=== PATIENT | male | born 1980 | race Caucasian/White ===

== ENCOUNTER 2023-11-28 13:19 | Observation (INO) ==
[2023-11-28 14:24] LABS: Basophils # (auto) 0.03 K/uL (0.00-0.20); Basophils % (auto) 0.3 %; Eosinophils # (auto) 0.03 K/uL (0.00-0.50); Eosinophils % (auto) 0.3 %; Hematocrit (blood only) 49.1 % (42.0-52.0); Hemoglobin 16.8 g/dl (14.0-18.0); Immature Granulocytes # (auto) 0.03 K/uL (0.01-0.20); Immature Granulocytes % (auto) 0.3 %; Lymphocytes # (auto) 1.83 K/uL (1.20-3.40); Lymphocytes % (auto) 17.7 %; Mean Corpuscular Hemoglobin 29.4 pg (25.0-34.0); Mean Corpuscular Hgb Conc 34.2 g/dL (32.0-36.0); Mean Corpuscular Volume 85.8 fL (80.0-100.0); Mean Platelet Volume 10.2 fL (9.4-12.4); Monocytes % (auto) 6.8 %; Neutrophils # (auto) 7.71 K/uL (1.40-6.50); Neutrophils % (auto) 74.6 %; Platelet Count 238 K/uL (130-400); RDW Coefficient of Variation 13.6 % (11.5-14.5); RDW Standard Deviation 43.2 fL (36.4-46.3); Red Blood Count 5.72 M/uL (4.70-6.10); White Blood Count 10.33 K/ul (4.8-10.8)
[2023-11-28 14:42] LABS: Albumin Globulin Ratio 1.5 (0.9-2); Albumin Level 4.7 gm/dl (3.4-5.0); BUN Creatinine Ratio 11.8 (10-20); Creatinine Clr Calc Pharmacy 87.6 ml/min; Est GFR (African American) 93.5 ml/min; Est GFR (Non-African American) 80.6 ml/min; Globulin 3.1 gm/dl (2.5-4.0); Total Protein 7.8 gm/dl (6.0-8.3)
[2023-11-28] MEDS: OPTIRAY 320 100ml IV ONE (15:19)
--- NOTE | 2023-11-28 15:45 | CT Scan Report ---
CT OF THE ABDOMEN AND PELVIS WITH CONTRAST CLINICAL HISTORY: PERIUMBILICAL/RLQ ABD PAIN COMPARISON STUDY: None. TECHNIQUE: Following IV administration of 93 mL of Optiray, axial images of the abdomen and pelvis we re obtained from the lung bases to the proximal femurs. Images were reviewed in the axial, sagittal, and coronal planes. IV contrast was administered without complication. Automated exposure control wa s utilized for the study. A dose lowering technique was utilized adhering to the principles of ALARA . CT DOSE: 1432.08 mGy.cm FINDINGS: Lung bases are unremarkable. No pneumatosis, free air or portal venous gas is present. Ther e is hepatic steatosis. No biliary or pancreatic ductal dilatation is noted. The spleen, adrenal glan ds, kidneys and pancreas are unremarkable. Major vasculature is patent. There is no evidence for a wander wel obstruction. The appendix is dilated, measuring 1.1 cm in caliber. The appendiceal wall is thicke jatin. There is moderate periappendiceal stranding. There is no free air. No fluid collection is presen t. IMPRESSION: Findings consistent with acute appendicitis. Moderate periappendiceal inflammation. No f ree air or abscess. ACT 112: Negative or not required by law. Electronically signed by: Vipin Malloy M.D. 11/28/2023 3:44 PM
--- NOTE | 2023-11-28 16:01 | Emergency Department Note ---
History of Present Illness General Chief complaint: Abdominal Pain Stated complaint: ABDOMINAL PAIN, Time Seen by Provider: 11/28/23 15:49 History of Present Illness Maximum Pain Intensity: 7 This is a 43-year-old male that presents to the emergency department via private vehicle with complaints of "abdominal pain". The patient notes that last evening around 8:30 PM he began with lower abdominal pain just below the umbilicus that is now in the right lower quadrant. This has never happened before. He notes a history of hernia surgery as a child but nothing recent. He could not sleep last night secondary to the pain. No fever. No urinary symptoms. Otherwise he is healthy. He last ate food last evening. Home Medications Medication Instructions Recorded Confirmed Type None (Patient States No Home Meds) ##0 01/28/10 History Allergies Allergy/AdvReac Type Severity Reaction Status Date / Time No Known Allergies Unverified 01/28/10 22:50 Past Med/Surg History Social History Smoking Status: Current every day smoker Tobacco Type: Smokeless Tobacco (Dip or Chew) Preferred Language: Samoan Feels Safe at Home: Yes Review of Systems A total of 10 systems reviewed and were otherwise negative Physical Exam Vital Signs Vital Signs - 24 hr 11/28/23 13:35 11/28/23 15:56 11/28/23 16:30 Temperature 36.8 C Temperature Source Temporal Artery Scan Pulse Rate 94 H 82 Pulse Rate [Apical] Pulse Rate [Right Finger] 96 H Pulse Rate from SpO2 Sensor 85 Pulse Rhythm Regular Pulse Rhythm [Apical] Pulse Rhythm [Right Finger] Pulse Strength Normal Pulse Strength [Right Finger] Respiratory Rate 18 20 14 Respiratory Effort / Characteristics Non-Labored Non-Labored Spontaneous Respiratory Depth Normal Normal Respiratory Pattern Regular Blood Pressure 163/108 H 143/100 H Blood Pressure [Right Arm] 172/119 H Blood Pressure Mean 126 114 Blood Pressure Mean [Right Arm] 136 Blood Pressure Position Sitting Blood Pressure Position [Right Arm] Pulse Oximetry 95 96 97 Oxygen Delivery Method Room Air Room Air Room Air Oxygen Flow Rate Sepsis Recent Fever Within 48 Hours No Sepsis New/Unexplained Change in Mental Status No Sepsis Action Taken by Nursing No Action Required 11/28/23 17:00 11/28/23 17:52 11/28/23 19:15 Temperature 37.4 C 36.3 C L Temperature Source Oral Temporal Artery Scan Pulse Rate 83 Pulse Rate [Apical] 73 Pulse Rate [Right Finger] 85 Pulse Rate from SpO2 Sensor 83 Pulse Rhythm Pulse Rhythm [Apical] Regular Pulse Rhythm [Right Finger] Regular Pulse Strength Pulse Strength [Right Finger] Normal Respiratory Rate 15 16 18 Respiratory Effort / Characteristics Non-Labored Spontaneous Non-Labored Spontaneous Respiratory Depth Normal Normal Respiratory Pattern Regular Blood Pressure 155/84 H Blood Pressure [Right Arm] 154/90 H 192/96 H Blood Pressure Mean 107 Blood Pressure Mean [Right Arm] 111 128 Blood Pressure Position Blood Pressure Position [Right Arm] Semi-fowlers Lying Pulse Oximetry 95 96 97 Oxygen Delivery Method Room Air Room Air Oxymask Oxygen Flow Rate 5 Sepsis Recent Fever Within 48 Hours Sepsis New/Unexplained Change in Mental Status Sepsis Action Taken by Nursing 11/28/23 19:25 Temperature Temperature Source Temporal Artery Scan Pulse Rate Pulse Rate [Apical] 90 Pulse Rate [Right Finger] Pulse Rate from SpO2 Sensor Pulse Rhythm Pulse Rhythm [Apical] Regular Pulse Rhythm [Right Finger] Pulse Strength Pulse Strength [Right Finger] Respiratory Rate 21 Respiratory Effort / Characteristics Non-Labored Spontaneous Respiratory Depth Normal Respiratory Pattern Regular Blood Pressure Blood Pressure [Right Arm] 179/94 H Blood Pressure Mean Blood Pressure Mean [Right Arm] 122 Blood Pressure Position Blood Pressure Position [Right Arm] Lying Pulse Oximetry 89 L Oxygen Delivery Method Oxymask Oxygen Flow Rate 5 Sepsis Recent Fever Within 48 Hours Sepsis New/Unexplained Change in Mental Status Sepsis Action Taken by Nursing VITAL SIGNS - Vital signs and nursing notes were reviewed. Hypertensive, otherwise stable. GENERAL -43-year-old male appearing his stated age who is in no acute distress. Communicates well with provider and answers questions appropriately. SKIN - Without rashes. No meningeal or petechial rash. HEAD - NC/AT. EYES - Sclera anicteric. NOSE - Midline and without cyanosis. MOUTH/OROPHARYNX - Without perioral cyanosis. NECK - Neck with FROM. No nuchal rigidity. LUNGS - Chest wall symmetric without accessory muscle use, intercostals retractions, or central cyanosis. Normal vesicular breath sounds CTA B/L. No wheezes, rales, or rhonchi appreciated. CARDIAC - RRR with S1/S2. No murmur, rubs, or gallops appreciated. ABDOMEN - Abdominal contour normal without pulsations or visible masses. BS normoactive all four quadrants. There is right lower quadrant abdominal tenderness to palpation. No palpable masses, hepatosplenomegaly, or ascites noted. EXTREMITIES - No clubbing or peripheral cyanosis. +5/5 strength noted in UE/LE bilaterally. NEUROLOGIC - Cranial nerves grossly intact. PSYCH -alert, oriented and pleasant on exam. Course Administered Medications Fentanyl Citrate (Fentanyl Citrate Pf 100 Mcg/2 Ml Vial) 50 mcg IV Q5M PRN PRN Reason: PACU Use Only-Pain Stop: 11/29/23 01:54 Last Admin: 11/28/23 19:40 Dose: 50 mcg Documented By: CELESTINE Sodium Chloride (Nss) 1,000 mls @ 100 mls/hr IV .Q10H JJ Stop: 12/28/23 19:29 Last Admin: 11/28/23 20:47 Dose: 100 mls/hr Documented By: HAL Discontinued Medications Bupivacaine HCl/Epinephrine Bitart (Bupivacaine/Epinephrine 0.5% Mpf 1:200,000 30 Ml Vial) Confirm Administered Dose 30 ml .ROUTE .STK-MED ONE Stop: 11/28/23 17:31 Last Admin: 11/28/23 19:00 Dose: 30 ml Documented By: LINDSAY Cefoxitin Sodium (Mefoxin) 2,000 mg in 60 mls @ 100 mls/hr IV NOW STA Stop: 11/28/23 16:31 Last Infusion: 11/28/23 17:35 Dose: Infused Documented By: Admin: 11/28/23 16:11 Dose: 100 mls/hr Documented By: DEVAUGHN Sodium Chloride (Nss) 1,000 mls @ 999 mls/hr IV .Q1H1M JJ Stop: 11/28/23 17:00 Last Infusion: 11/28/23 17:27 Dose: Infused Documented By: Admin: 11/28/23 16:11 Dose: 999 mls/hr Documented By: DEVAUGHN Ioversol (Optiray 320 100ml) 93 ml IV ONCE ONE Stop: 11/28/23 15:16 Last Admin: 11/28/23 15:19 Dose: 93 ml Documented By: BROOKE Morphine Sulfate (Morphine Sulfate 4 Mg/Ml 1 Ml Carp\\Vial) 4 mg IV NOW STA Stop: 11/28/23 15:57 Last Admin: 11/28/23 16:10 Dose: 4 mg Documented By: DEVAUGHN Ondansetron HCl (Ondansetron Inj 2 Mg/Ml 2 Ml Vial) 4 mg IV NOW STA Stop: 11/28/23 15:57 Last Admin: 11/28/23 16:10 Dose: 4 mg Documented By: DEVAUGHN Medical Decision Making Laboratory Data 11/28/23 14:10 11/28/23 14:10 Lab Results 11/28/23 Range/Units 14:10 WBC 10.33 (4.8-10.8) K/ul RBC 5.72 (4.70-6.10) M/uL Hgb 16.8 (14.0-18.0) g/dl Hct 49.1 (42.0-52.0) % MCV 85.8 (80.0-100.0) fL MCH 29.4 (25.0-34.0) pg MCHC 34.2 (32.0-36.0) g/dL RDW Std Deviation 43.2 (36.4-46.3) fL RDW Coeff of Araceli 13.6 (11.5-14.5) % Plt Count 238 (130-400) K/uL MPV 10.2 (9.4-12.4) fL Immature Gran % (Auto) 0.3 % Neut % (Auto) 74.6 % Lymph % (Auto) 17.7 % [place] % (Auto) 6.8 % Eos % (Auto) 0.3 % Baso % (Auto) 0.3 % Neut # (Auto) 7.71 H (1.40-6.50) K/uL Lymph # (Auto) 1.83 (1.20-3.40) K/uL [place] # (Auto) 0.70 H (0.11-0.59) K/uL Eos # (Auto) 0.03 (0.00-0.50) K/uL Baso # (Auto) 0.03 (0.00-0.20) K/uL Immature Gran # (Auto) 0.03 (0.01-0.20) K/uL Sodium 135 L (136-145) mmol/L Potassium 4.0 (3.5-5.1) mmol/L Chloride 101 (98-107) mmol/L Carbon Dioxide 26 (21-32) mmol/L Anion Gap 8 (3-11) BUN 13 (6-23) mg/dl Creatinine 1.10 (0.6-1.4) mg/dl Est Cr Clr Drug Dosing 87.6 ml/min Est GFR ( Amer) 93.5 ml/min Est GFR (Non-Af Amer) 80.6 ml/min BUN/Creatinine Ratio 11.8 (10-20) Glucose 123 H (70-99(Fasting)) mg/dl Calcium 10.0 (8.6-10.3) mg/dl Total Bilirubin 1.0 (0.2-1.0) mg/dl AST 17 (13-39) U/L ALT 38 (7-52) U/L Alkaline Phosphatase 84 (34-104) U/L Total Protein 7.8 (6.0-8.3) gm/dl Albumin 4.7 (3.4-5.0) gm/dl Globulin 3.1 (2.5-4.0) gm/dl Albumin/Globulin Ratio 1.5 (0.9-2) Lipase 27 (11-82) U/L Imaging Data Radiologist's Impression: Abdomen/Pelvis CT 11/28/23 13:57 CT OF THE ABDOMEN AND PELVIS WITH CONTRAST CLINICAL HISTORY: PERIUMBILICAL/RLQ ABD PAIN COMPARISON STUDY: None. TECHNIQUE: Following IV administration of 93 mL of Optiray, axial images of the abdomen and pelvis were obtained from the lung bases to the proximal femurs. Images were reviewed in the axial, sagittal, and coronal planes. IV contrast was administered without complication. Automated exposure control was utilized for the study. A dose lowering technique was utilized adhering to the principles of ALARA. CT DOSE: 1432.08 mGy.cm FINDINGS: Lung bases are unremarkable. No pneumatosis, free air or portal venous gas is present. There is hepatic steatosis. No biliary or pancreatic ductal dilatation is noted. The spleen, adrenal glands, kidneys and pancreas are unremarkable. Major vasculature is patent. There is no evidence for a bowel obstruction. The appendix is dilated, measuring 1.1 cm in caliber. The appendiceal wall is thickened. There is moderate periappendiceal stranding. There is no free air. No fluid collection is present. IMPRESSION: Findings consistent with acute appendicitis. Moderate periappendiceal inflammation. No free air or abscess. ACT 112: Negative or not required by law. Electronically signed by: Vipin Malloy M.D. 11/28/2023 3:44 PM MDM Narrative Patient was seen and evaluated as above in room A03. Review was performed of triage nursing notes and vital signs. After obtaining a thorough history and physical examination the above work up was performed. Patient presents to us today for evaluation of right lower quadrant abdominal pain that began last evening around 8:30 PM. No history of similar. Afebrile. Hypertensive on arrival. He is tender in the right lower abdomen. Options of care were discussed with the patient. Patient does present during a period of elevated volume and acuity in the emergency department. He already had labs and imaging performed of the abdomen/pelvis. Labs reveal no leukocytosis or concerning anemia. No emergent metabolic disturbance. Mild hyperglycemia 123. Urinalysis without sign of infection. CT scan reveals findings consistent with acute appendicitis. Moderate periappendiceal inflammation. No free air or abscess. IV fluids, IV antiemetics, IV analgesics, and IV antibiotics ordered. Case discussed with the on-call general surgeon (Dr. Haq) at 5:06 PM. He will come evaluate the patient. Please refer to further documentation regarding his stay. GCS: 15 In the evaluation and treatment of this patient the following differential diagnoses were entertained: Acute appendicitis, gastroenteritis, diverticulitis, UTI, pyelonephritis, strain, sprain, among others. Impression & Plan Acute appendicitis Discharge Plan Visit Data Chief Complaint: Abdominal Pain Stated Complaint: ABDOMINAL PAIN, ED Provider: Kamran Forde ED Midlevel Provider: Gilson Mo Discharge Problem: Acute appendicitis Condition: Good Discharge Instructions Interventions: ED Discharge Assessment Last Done: 11/28/23 17:45
[2023-11-28] MEDS: ONDANSETRON INJ 2 MG/ML 2 ML VIAL IV STA (16:10)
[2023-11-28] MEDS: MoRPHine SULFATE 4 MG/ML 1 ML CARP\\VIAL IV STA (16:10)
[2023-11-28] MEDS: SODIUM CHLORIDE 0.9% 1,000 ML IV SCH ×2 (16:11→20:47)
[2023-11-28] MEDS: cefOXitin 2,000 MG/60 ML BAG IV STA (16:11)
[2023-11-28 16:36] LABS: Appearance Urine Clear (Clear); Bilirubin Urine Negative (Negative); Blood Urine Negative (Negative); Color Urine Yellow; Glucose Urine UA Negative (Negative); Ketones Urine Negative (Negative); Leukocyte Esterase Urine Negative (Negative); Nitrite Urine Negative (Negative); Protein Urine Negative (Negative); Specific Gravity Urine > 1.045 (1.000-1.030); Urobilinogen Urine Negative (Negative)
[2023-11-28] MEDS ORDERED: ONDANSETRON INJ 2 MG/ML 2 ML VIAL ONE (17:44)
[2023-11-28] MEDS ORDERED: DEXAMETHASONE SOD INJ 4 MG/ML VIAL ONE ×2 (17:44→18:21)
[2023-11-28] MEDS ORDERED: LIDOCAINE 2% 2 ML VIAL/AMP(20MG/ML) INFIL ONE (17:44)
[2023-11-28] MEDS ORDERED: MIDAZOLAM HCL 1 MG/ML 2ML VIAL ONE (17:44)
[2023-11-28] MEDS ORDERED: SUCCINYLCHOLINE CHLORIDE 20 MG/ML 10 ML VIAL IV ONE (17:44)
[2023-11-28] MEDS ORDERED: fentaNYL citrate PF 100 MCG/2 ML VIAL ONE (17:44)
[2023-11-28] MEDS ORDERED: SUGAMMADEX SODIUM 200 MG/2 ML VIAL IV ONE (17:45)
--- NOTE | 2023-11-28 17:47 | History & Physical Report ---
Date of Service November 28, 2023 Assessment & Plan (1) Acute appendicitis: Plan: We discussed his options as well as risks which include bleeding, infection, injury to another organ, DVT, PE, OH, CVA etc. Following a discussion I answered all of his questions. He agrees with the plan. We will proceed with laparoscopic appendectomy this evening. History of Present Illness Primary Care Provider: NO PCP Heladio is a pleasant 43-year-old male who has less than 24-hour history of umbilical pain which has now migrated to the right lower quadrant. He came to the emergency room and workup has revealed an acute appendicitis. Allergies Allergy/AdvReac Type Severity Reaction Status Date / Time No Known Allergies Unverified 01/28/10 22:50 Home Medications Medication Instructions Recorded Confirmed Type None (Patient States No Home Meds) ##0 01/28/10 History Past Med/Surg History Social History Smoking Status: Current every day smoker Tobacco Type: Smokeless Tobacco (Dip or Chew) Preferred Language: Yakut Feels Safe at Home: Yes Review of Systems All systems reviewed & are unremarkable except as noted in HPI & below Physical Exam Constitutional: WD/WN, vitals as above no acute distress and not ill appearing Eyes: PERRL, conjunctivae normal, anicteric sclerae EOM intact bilaterally ENMT: external ear and nose normal, oropharynx normal Ears: no hearing impairment Neck: trachea midline, no thyromegaly Respiratory: normal respiratory effort; no respiratory distress and does not use accessory muscles Cardiovascular: Rate/Rhythm: regular rate and regular rhythm Gastrointestinal (Abdomen): Soft. Positive right lower quadrant tenderness. Positive guarding. Skin: no rashes, warm and dry Psychiatric: Orientation: alert, oriented x 3 and cooperative Results & Data Vital Signs (Past 12 Hours) Vital Signs Temp Pulse Pulse Resp BP BP Pulse Ox 11/28/23 17:00 83 15 155/84 H 95 11/28/23 16:30 82 14 143/100 H 97 11/28/23 15:56 96 H 20 172/119 H 96 11/28/23 13:35 36.8 C 94 H 18 163/108 H 95 O2 Del Method 11/28/23 17:00 Room Air 11/28/23 16:30 Room Air 11/28/23 15:56 Room Air 11/28/23 13:35 Room Air
[2023-11-28] MEDS ORDERED: ATROPINE SULFATE 0.1 MG/ML 10ML SYR IV PRN (17:54)
[2023-11-28] MEDS ORDERED: ePHEDrine sulfate 50 MG/ML AMP IV PRN (17:54)
[2023-11-28] MEDS ORDERED: PROMETHAZINE HCL 6.25 MG in SODIUM CHLORIDE 0.9% 50 ML IV PRN (17:54)
[2023-11-28] MEDS ORDERED: ONDANSETRON INJ 2 MG/ML 2 ML VIAL IV PRN ×2 (17:54→19:26)
--- NOTE | 2023-11-28 17:54 | Anesthesiology Consultation ---
Date of Service November 28, 2023 Assessment & Plan Chart Review Chart Review: Acceptable Risk for Surgery and Patient NOT seen in Pre Admission Testing Consults Requested none ASA ASA2E Proposed Anesthesia Anesthesia Type: General Risk / Benefits Reviewed With: PT / POA / Parent / Guardian, Accepts Plan and Informed Consent Obtained History Surgery Operation Date: 11/28/23 13:10 Proposed Procedures p Laparoscopic Appendectomy - Que Haq, Height/Weight Height: 5 ft 10 in Weight: 75.5 kg Allergies Allergy/AdvReac Type Severity Reaction Status Date / Time No Known Allergies Unverified 01/28/10 22:50 Medications Home Medications Medication Instructions Recorded Confirmed Last Taken None (Patient States No Home Meds) ##0 01/28/10 Unknown Exercise / Class Metabolic Activity II 4-5 Yardwork/Stairs/Walk up hill Past Anesthesia History No Hx of Anesthesia Complications and No Family Hx of Anesthesia Complications History of PONV No Hx of PONV and No Hx of Motion Sickness Social History Smoking Status: Current every day smoker Physical Exam Vital Signs Last Vital Signs Temp 36.8 C 11/28/23 13:35 Pulse 83 11/28/23 17:00 Resp 15 11/28/23 17:00 BP 155/84 H 11/28/23 17:00 Pulse Ox 95 11/28/23 17:00 O2 Del Method Room Air 11/28/23 17:00 ENMT Mouth: no dentition abnormality Thyromental Distance: > or= 3.5 Finger Breadths Mallampati Class: II Neck normal visual inspection Respiratory normal respiratory effort Auscultation: lungs clear to auscultation bilaterally Cardiovascular Rate/Rhythm: regular rate and regular rhythm Psychiatric Orientation: alert Testing Laboratory Results 11/28/23 14:10 11/28/23 14:10 Urine Color Yellow 11/28/23 Unknown Urine Appearance Clear (Clear) 11/28/23 Unknown Urine pH 7.0 (4.5-7.5) 11/28/23 Unknown Ur Specific Jackson > 1.045 (1.000-1.030) H 11/28/23 Unknown Urine Protein Negative (Negative) 11/28/23 Unknown Urine Glucose (UA) Negative (Negative) 11/28/23 Unknown Urine Ketones Negative (Negative) 11/28/23 Unknown Urine Nitrite Negative (Negative) 11/28/23 Unknown Ur Leukocyte Esterase Negative (Negative) 11/28/23 Unknown
[2023-11-28] MEDS ORDERED: KETOROLAC 30 MG/ML VIAL ONE (18:54)
[2023-11-28] MEDS: BUPIVACAINE/EPINEPHRINE 0.5% MPF 1:200,000 30 ML VIAL ONE (19:00)
[2023-11-28] MEDS ORDERED: ACETAMINOPHEN 1,000 MG/100 ML VIAL IV PRN (19:26)
[2023-11-28] MEDS ORDERED: MoRPHine SULFATE 4 MG/ML 1 ML CARP\\VIAL IV PRN (19:26)
--- NOTE | 2023-11-28 19:39 | Operative Report ---
PG Post Operative Report Pre & Post Diagnosis Operation Date: 11/28/23 13:10 Pre-Op Diagnosis: acute appendicitis Post-Op Diagnosis: acute appendicitis I identified the patient and participated in the time-out.: Yes Procedure Operation Date: 11/28/23 13:10 Actual Procedures p Laparoscopic Appendectomy(Not Applicable) - Que Haq DO Surgeon Que Haq DO Assistant Administrator n/a Estimated Blood Loss 5 Findings Consistent with Post-Op Diagnosis Specimens appendix Description of Procedure After informed consent was obtained the patient was taken to the operating room and placed in supine position. After successful intubation a Hamilotn catheter was placed and the left arm was tucked. A Hamilton catheter was inserted sterilely. I began by making a periumbilical incision with an 11 blade scalpel and carried this down through the soft tissue using electrocautery. The anterior rectus fascia was opened using electrocautery and 2 #0 Vicryl stay sutures were placed. The peritoneum was elevated using hemostats and incised under direct vision using a Metzenbaum scissor. A finger sweep was performed. A 12 mm Eugene troc ar was placed and the abdomen was insufflated to 18 mmHg. A laparoscope was inserted and the abdomen was examined in 360. A suprapubic 5 mm port and a left lower quadrant 12 mm port were placed under direct vision. The patient was air planed to the left as well as placed in a slight Trendelenburg position. We began by looking in the right lower quadrant. We were able to readily identify the appendix and it was grossly inflamed. It had not perforated. There is a small amount of purulent fluid in the right lower quadrant and the pelvis. We immediately irrigated and suctioned this out. I was able to use primarily blunt dissection to pull the appendix away from the right lower quadrant sidewall. I was then able to use a TOÑO brown cartridge stapler to transect first the mesentery of the appendix followed by the appendix itself at its base with the cecum. It was then placed into an Endo Catch bag and removed from the camera port site. We thoroughly irrigated the right lower quadrant as well as the pelvis. There was a small amount of bleeding at the mesentery staple line. I controlled this using a clip estimator lumber. Following clip placement... there was adequate hemostasis. I ran the small bowel backwards from the terminal ileum for about 6 feet all of which was normal. All the peritoneal surfaces were normal. Small/ large bowel, liver, stomach etc. all appeared grossly normal. We did a final irrigation and then removed all the trochars and desufflated the abdomen. The fascia of the camera port as well as the left lower quadrant were closed using 0 Vicryl in [id number] fashion. Wounds were all irrigated and closed using 4-0 Monocryl. Marcaine was injected around them for postoperative analgesia and skin glue used as a dressing. The patient was awakened extubated and transferred to recovery in stable condition. I attest to the content of the Intraoperative Record and any orders documented therein. Any exceptions are noted below.
[2023-11-28] MEDS: fentaNYL citrate PF 100 MCG/2 ML VIAL IV PRN (19:40)
--- NOTE | 2023-11-28 19:44 | Anesthesiology Progress Note ---
Date of Service November 28, 2023 Anesthesia Post Procedure Vital Signs Vital Signs: Temp Pulse Pulse Resp BP BP Pulse Ox 11/28/23 17:52 37.4 C 85 16 154/90 H 96 11/28/23 17:00 83 15 155/84 H 95 11/28/23 16:30 82 14 143/100 H 97 11/28/23 15:56 96 H 20 172/119 H 96 11/28/23 13:35 36.8 C 94 H 18 163/108 H 95 O2 Del Method 11/28/23 17:52 Room Air 11/28/23 17:00 Room Air 11/28/23 16:30 Room Air 11/28/23 15:56 Room Air 11/28/23 13:35 Room Air Pain Intensity Right Lower Abdomen: Pain Intensity: 4 Transfer of Care Handoff Completed per policy Notes Mental Status: alert / awake / arousable Patient Amnestic to Procedure: Yes Nausea / Vomiting: adequately controlled Pain: adequately controlled Airway Patency, RR, SpO2: stable & adequate BP & HR: stable & adequate Hydration State: stable & adequate Anesthetic Complications: no major complications apparent Notes: patient obstructing on arrival to pacu, O2 sats to 60s, briefly. LMA#5 placed to facilitate difficult ventilation in pacu. Patient awakened well, LMA removed, and no further issues during immediate recovery period.
[2023-11-28] MEDS: cefOXitin 2,000 MG in DEXTROSE 5 % MINI-B 50 ML IV SCH (22:12)
[2023-11-29 06:37] LABS: Basophils # (auto) 0.01 K/uL (0.00-0.20); Basophils % (auto) 0.2 %; Hematocrit (blood only) 45.3 % (42.0-52.0); Hemoglobin 14.8 g/dl (14.0-18.0); Immature Granulocytes # (auto) 0.01 K/uL (0.01-0.20); Immature Granulocytes % (auto) 0.2 %; Lymphocytes # (auto) 0.86 K/uL (1.20-3.40); Lymphocytes % (auto) 13.1 %; Mean Corpuscular Hemoglobin 28.5 pg (25.0-34.0); Mean Corpuscular Hgb Conc 32.7 g/dL (32.0-36.0); Mean Corpuscular Volume 87.1 fL (80.0-100.0); Mean Platelet Volume 10.3 fL (9.4-12.4); Monocytes # (auto) 0.18 K/uL (0.11-0.59); Monocytes % (auto) 2.8 %; Neutrophils # (auto) 5.48 K/uL (1.40-6.50); Neutrophils % (auto) 83.7 %; Platelet Count 212 K/uL (130-400); RDW Coefficient of Variation 13.7 % (11.5-14.5); RDW Standard Deviation 44.4 fL (36.4-46.3); White Blood Count 6.54 K/ul (4.8-10.8)
[2023-11-29 06:52] LABS: BUN Creatinine Ratio 13.6 (10-20); Calcium 8.8 mg/dl (8.6-10.3); Creatinine Clr Calc Pharmacy 103.7 ml/min; Est GFR (African American) 101.2 ml/min; Est GFR (Non-African American) 87.3 ml/min; Potassium 4.5 mmol/L (3.5-5.1)
--- NOTE | 2023-11-29 08:38 | Surgery Progress Note ---
Date of Service November 29, 2023 Assessment & Plan (1) Acute appendicitis: Plan: POD#1 lap appendectomy WBC 6.5, Hbg 14.8. Vitals stable He is doing very well Tolerating diet, pain controlled Will plan on dispo to home w/ 5 day course of po abx F/u in the office within 2 weeks for check up. post op instructions reviewed Admission and Anticipated Discharge Date Admission Date: November 28, 2023 Subjective Patient is feeling well. Some post op incisional discomfort, but otherwise pain has been well controlled. Tolerating liquids thus far, no nausea/vomiting. Wishes to be discharged. Physical Exam Physical Exam: awake/alert, no distress Gastrointestinal (Abdomen): Inspection/Auscultation: + abdominal surgical incision (c/d/i) Percussion/Palpation: + abdomen tender (expected post op discomfort) and abdomen soft Results & Data Vital Signs (Past 12 Hours) Vital Signs Temp Pulse Pulse Resp BP Pulse Ox O2 Del Method 11/29/23 08:06 97.9 F 59 L 16 132/83 95 Room Air 11/29/23 03:14 97.7 F 58 L 14 115/75 95 Room Air 11/28/23 23:40 97.7 F 58 L 16 112/72 98 Room Air 11/28/23 22:33 97.9 F 73 18 128/86 95 Room Air 11/28/23 22:00 Room Air 11/28/23 21:32 97.5 F L 76 16 122/84 94 Room Air 11/28/23 21:01 97.5 F L 76 18 122/82 94 Room Air PG Care Time/CCT Total # of Minutes Spent Total Time Spent with Patient: Total time spent is greater than 50% in coordination of care (as documented) at patient's floor/unit and/or counseling patient: Coding Level of Care Code 92827 Post Operative Follow-Up Diagnoses Acute appendicitis K35.80
--- NOTE | 2023-12-03 10:56 | Discharge Summary ---
Date of Service November 29, 2023 Admission HPI Per Admitting Provider Heladio is a pleasant 43-year-old male who has less than 24-hour history of umbilical pain which has now migrated to the right lower quadrant. He came to the emergency room and workup has revealed an acute appendicitis. Principal Diagnosis acute appendicitis Discharge Exam awake/alert, no distress Respiratory normal respiratory effort Gastrointestinal (Abdomen) Inspection/Auscultation: + abdominal surgical incision (c/d/i); abdomen not distended Percussion/Palpation: + abdomen tender (expected deborah incisional discomfort ) and abdomen soft Discharge Data Allergies Allergy/AdvReac Type Severity Reaction Status Date / Time No Known Allergies Unverified 01/28/10 22:50 Procedures Performed Operation Date: 11/28/23 13:10 Actual Procedures p Laparoscopic Appendectomy(Not Applicable) - Que Haq, Ordered Studies 11/28/23 13:57 CT abd pelvis IV con only Stat Hospital Course (1) Acute appendicitis: This is a 43yM who presented to the [facility] ED on 11/27 with abdominal pain. Workup in the ED showed a WBC of [address] a/p concerning for acute appendicitis. The patient was tender to palpation in the RLQ. Patient made NPO with IVF and booked for the OR. On 11/27 the patient went to the OR with Dr. Haq for a laparoscopic appendectomy. The patient tolerated the procedure well, see operative report for full details. Post operatively the patient's diet was advanced, pain managed on prn meds, and incisions clean/dry/intact. On POD#1 WBC 6.5 the patient was deemed stable for discharge to home. Total Time Total Time Spent Total Time Spent (In Minutes): 10 Discharge Plan Discharge Items Patient Disposition: Home - Self-Care Reason For Visit: APPY Discharge Diagnosis: laparoscopic appendectomy Condition on Discharge: Good Activity: Per Instructions section Lifting: No more than 10 pounds Bathing Comment: may shower; no soaking in tubs/pools x 2 weeks Exercise/Sports: Wait until after follow-up appointment Driving/Machine Use: no driving while taking narcotics for pain; wait at least 3 days Non-emergency contact: Surgeon Call non-emergency contact if: you have any medication questions, your pain is unusual for you, you have a fever, your temperature is above 101.5, your wound has increased drainage and your wound pain has increased Follow-up/Referrals: Que Haq, [Surgeon] - 12/11/23 10:45 am (Please call to schedule follow up in clinic within 2 weeks ) PCP,NO [Primary Care Provider] - Diet: Regular Addtl Attending Provider Instructions: You have skin glue over your incisions called dermabond. you may shower with this on. It will tend to dissolve and fall off within a couple weeks. Do not pick at the skin glue You may purchase Ibuprofen over the counter if needed for additional pain control over the next few days. Take per manufacturers instructions Please complete the full course of antibiotic prescribed to you Pending Studies at Discharge: Yes Studies:: surgical pathology Stand-Alone Forms: My [facility], Smoking Cessation, Important Visit Information Medications and DC Order Prescriptions: New oxycodone-acetaminophen [Percocet] 5-325 mg tablet 1 - 2 tab PO .q4-6h PRN (Reason: pain, for initial therapy, max 6 tabs per day) Qty: 12 0RF amoxicillin-pot clavulanate 875-125 mg tablet 1 tab PO BID Qty: 10 0RF Continued None (Patient States No Home Meds) . Qty: 0 Discharge Orders: Discharge Order (Routine); Ordered 11/29/23 Ordered By: Katalina Hartmann Admission Data Admit Date/Time: 11/28/23 19:34 Attending Provider: Que Haq Admit Provider: Que Haq Primary Care Provider: PCP,NO Other Interventions: Discharge Summary Assessment (RN) Last Done: 11/29/23 09:09 Coding Level of Care Code 00129 IN/OBS DISCH 30 MIN/LESS Diagnoses Acute appendicitis K35.80
== END 2023-11-29 10:16 | disposition home or self-care (01) ==
LOC: ED 13:19 → 3N 17:45 → ED 17:45 → OR 17:45 → 3N 19:34 → INTOOBSV 19:34
DX: K35.80 Unspecified acute appendicitis; F17.220 Nicotine dependence, chewing tobacco, uncomplicated